=== PATIENT | female | born 1960 ===

== ENCOUNTER 2017-02-19 16:15 | Emergency (ER) | payer MEDICAID ==
[2016-12-02 09:31] VITALS: PULSE 86; BMI 23.4
== END 2017-02-19 22:52 | disposition home or self-care (01) ==
LOC: ED 16:15
DX: H92.01 Otalgia, right ear (principal)

== ENCOUNTER 2017-07-09 10:35 | Emergency (ER) | payer MEDICAID ==
[2017-07-09 10:36] VITALS: PULSE 86; BMI 23.4
[2017-07-09 10:48] VITALS: RESP 18; TEMP 97.9
[2017-07-09] MEDS ORDERED: TDAP Vaccine 0.5 mL Syr IM ONE (11:09)
--- NOTE | 2017-07-09 11:24 | ED PDOC ---
Arrival/HPI - General Chief Complaint: Trauma Time Seen by Provider: 07/09/17 11:03 Historian: Patient - History of Present Illness Narrative History of Present Illness (Text): 07/09/17 11:07 57 year old female, whose past medical history includes diabetes, hypertension, and tachycardia, presents to the emergency department complaining of mechanical fall since 4 days ago. Patient states she fell while walking. She is uncertain how she fell. Since then, patient has been experiencing back pain and has an abrasion on her elbow. Patient states she thought if she rested, the pain would go away, but has had no relief. Patient has no other complaints. Also, patient is refusing to be given any pain medications at this time. PMD: Dr. Her Time/Duration: > week (4 days ago) Symptom Onset: Gradual Symptom Course: Unchanged Past Medical History - Provider Review Nursing Documentation Reviewed: Yes - Infectious Disease Hx of Infectious Diseases: None - Cardiac Hx Cardiac Disorders: Yes (dextrocardia) Hx Hypertension: No - Pulmonary Hx Respiratory Disorders: No - Neurological Hx Neurological Disorder: Yes (multiple sclerosis) - HEENT Hx HEENT Disorder: Yes (impaired vision) Hx Cataracts: Yes (b/l sx) Hx Glaucoma: Yes (r eye needs sx, redness noted) Other/Comment: speech impediment - Renal Hx Renal Disorder: No - Endocrine/Metabolic Hx Endocrine Disorders: Yes Hx Diabetes Mellitus Type 2: Yes - Hematological/Oncological Hx Cirrhosis: No - Integumentary Hx Dermatological Disorder: No - Musculoskeletal/Rheumatological Hx Musculoskeletal Disorders: Yes Hx Back Pain: Yes Hx Falls: No Other/Comment: waks with cane - Gastrointestinal Hx Gastrointestinal Disorders: Yes (constipation at times) - Genitourinary/Gynecological Hx Genitourinary Disorders: No - Psychiatric Hx Post Traumatic Stress Disorder: No Hx Psychosis: Yes Hx Substance Use: No - Surgical History Hx Hysterectomy: Yes Hx Orthopedic Surgery: Yes - Anesthesia Hx Anesthesia: Yes Hx Anesthesia Reactions: No Hx Malignant Hyperthermia: No Family/Social History - Physician Review Nursing Documentation Reviewed: Yes Family/Social History: No Known Family HX Smoking Status: Never Smoked Hx Alcohol Use: No Hx Substance Use: No Allergies/Home Meds Allergies/Adverse Reactions: Allergies EGG Allergy (Mild, Verified 07/09/17 10:42) NAUSEA Review of Systems - Physician Review All systems were reviewed & negative as marked: Yes - Review of Systems Musculoskeletal: Back Pain Skin: Other (abrasion to left elbow) Physical Exam Vital Signs Reviewed: Yes Vital Signs Temp Pulse Resp BP Pulse Ox 07/09/17 12:02 92 H 18 100/80 100 07/09/17 10:45 97.9 F 100 H 18 94/72 L 96 Temperature: Afebrile Blood Pressure: Normal Pulse: Regular Respiratory Rate: Normal Appearance: Positive for: Well-Appearing Pain Distress: None Mental Status: Positive for: Alert and Oriented X 3 - Systems Exam Back: Present: Paraspinal Tenderness (lower back) Upper Extremity: Present: Other (abrasion to left elbow) Medical Decision Making ED Course and Treatment: 07/09/17 11:14 Impression: 57 year old female with left elbow abrasion and lower back pain. Physical exam shows, abrasion to left elbow and paraspinal tenderness to lower back. Plan: -- Left Elbow X-Ray -- Lumbar Spinal X-ray -- Boostrix vaccine -- Reassess and disposition Prior Visits: Notes and results from previous visits were reviewed. Patient was last seen in the emergency department on 12/02/2016 for urinary frequency and urgency. Patient was discharged home. Progress Notes: 07/09/2017 12:44 Lumbar Spine X-Ray FINDINGS: BONES: Normal alignment. No listhesis. No fracture. DISC SPACES: Unremarkable. OTHER FINDINGS: None. IMPRESSION: Unremarkable radiographs of the lumbar spine. Dictator: Elliot Booker MD - RAD Interpretation Radiology Orders: 07/09/17 11:09 ELBOW LEFT 3 VIEWS ROUTINE [RAD] Stat LS SPINE AP/LAT [RAD] Stat - Medication Orders Current Medication Orders: Discontinued Medications Tetanus/Reduced Diphtheria/Acell Pertussis (Boostrix Vaccine Inj) 0.5 ml IM .ONCE ONE Stop: 07/09/17 11:10 Last Admin: 07/09/17 11:47 Dose: 0.5 ml MAR Immunization Data Document 07/09/17 11:47 SF (Rec: 07/09/17 11:47 SF [id number]) Immunization Data Vaccine Lot Number [id number] Vaccine Expiration Date 06/17/19 Site Given Left Deltoid - Scribe Statement The provider has reviewed the documentation as recorded by the Landon Ang Provider Scribe Attestation: All medical record entries made by the Scribe were at my direction and personally dictated by me. I have reviewed the chart and agree that the record accurately reflects my personal performance of the history, physical exam, medical decision making, and the department course for this patient. I have also personally directed, reviewed, and agree with the discharge instructions and disposition. Disposition/Present on Arrival - Present on Arrival Any Indicators Present on Arrival: No History of DVT/PE: No History of Uncontrolled Diabetes: No Urinary Catheter: No History of Decub. Ulcer: No History Surgical Site Infection Following: None - Disposition Have Diagnosis and Disposition been Completed?: Yes Diagnosis: Fall, Elbow injury, Back sprain Disposition: HOME/ ROUTINE Disposition Time: 12:00 Condition: STABLE Discharge Instructions (ExitCare): Acute Low Back Pain (ED), Elbow Sprain (ED) , Fall Prevention (ED) Additional Instructions: please follow up withyour doctor/clinic. return to er with worsening symptoms or concerns. Prescriptions: Cyclobenzaprine [Cyclobenzaprine HCl] 10 mg PO DAILY PRN #10 tab PRN Reason: Muscle Spasm Naproxen [Naprosyn] 500 mg PO BID PRN #14 tablet PRN Reason: Pain, Mild (1-3) Referrals: [facility] [Outside] - Follow up with primary [facility] [Outside] - Follow up with primary Duran Martinez MD [Staff Provider] - Follow up with primary Forms: [employer] (Chinese)
[2017-07-09 12:03] VITALS: BP 100/80; PULSE 92; O2SAT 100
--- NOTE | 2017-07-09 12:45 | RAD ---
PROCEDURE: Radiographs of the Lumbar Spine. HISTORY: fall COMPARISON: No prior. FINDINGS: BONES: Normal alignment. No listhesis. No fracture. DISC SPACES: Unremarkable. OTHER FINDINGS: None. IMPRESSION: Unremarkable radiographs of the lumbar spine.
--- NOTE | 2017-07-09 12:48 | RAD ---
PROCEDURE: Radiographs of the left elbow. HISTORY: fall COMPARISON: No prior. FINDINGS: BONES: Normal. No fracture. JOINTS: Normal. No osteoarthritis. SOFT TISSUES: Normal. JOINT EFFUSION: None. OTHER FINDINGS: None IMPRESSION: Unremarkable radiographs of the left elbow.
== END 2017-07-09 12:01 | disposition home or self-care (01) ==
LOC: ED 10:35
DX: S33.5XXA Sprain of ligaments of lumbar spine, initial encounter (principal); S59.902A Unspecified injury of left elbow, initial encounter; W01.0XXA Fall on same level from slipping, tripping and stumbling without subsequent striking against object, initial encounter; Y93.01 Activity, walking, marching and hiking; Y92.89 Other specified places as the place of occurrence of the external cause; Z23 Encounter for immunization

== ENCOUNTER 2017-08-25 10:45 | Emergency (ER) | payer MEDICAID ==
[2017-08-25 10:46] VITALS: PULSE 86; BMI 23.4
[2017-08-25 11:01] VITALS: RESP 18; TEMP 98.1; O2SAT 98
[2017-08-25 11:33] VITALS: BP 113/71; PULSE 94
--- NOTE | 2017-08-25 11:37 | ED PDOC ---
Arrival/HPI - General Historian: Patient EM Caveat: Other (hx of mental deficiency ) - History of Present Illness Time/Duration: 24 hours Symptom Course: Unchanged <Francisco Perera - Last Filed: 08/25/17 11:47> - History of Present Illness Activities at Onset: Rest, Light Context: Home <Parul Zuniga - Last Filed: 08/25/17 17:14> - General Chief Complaint: Abnormal Skin Integrity Time Seen by Provider: 08/25/17 11:15 - History of Present Illness Narrative History of Present Illness (Text): 08/25/17 11:32 This is a 57 yo female, with hx of mental deficiency, a fib, dextrocardia, DM, MS, presenting to ER with chief complaint of bump on back of her neck. Patient has small cyst on back of neck that she first noticed 1 year ago. It started becoming painful today so she decided to come into ER. She denies fevers, chills , other systemic sx. There has been no pus or drainage. She does report some dizziness occasionally owing to her a fib. She has an appt with Dr. Anders on . PMH: DM, MS, a fib, dextrocardia PSH: none Allergies: morphine Home meds: none FH: Alzheimer's disease Social hx: Denies smoking, drinking, drug use. Born in [place]. 08/25/17 11:37 (Francisco Perera) Past Medical History - Provider Review Nursing Documentation Reviewed: Yes - Travel History Have you recently traveled outside [place] w/in the past 3 mons?: No - Infectious Disease Hx of Infectious Diseases: None - Reproductive Menopause: Yes - Cardiac Hx Cardiac Disorders: Yes (dextrocardia) Hx Atrial Fibrillation: Yes Hx Hypertension: No - Pulmonary Hx Respiratory Disorders: No - Neurological Hx Neurological Disorder: Yes (multiple sclerosis) - HEENT Hx HEENT Disorder: Yes (impaired vision) Hx Cataracts: Yes (b/l sx) Hx Glaucoma: Yes (r eye needs sx, redness noted) Other/Comment: speech impediment - Renal Hx Renal Disorder: No - Endocrine/Metabolic Hx Endocrine Disorders: Yes Hx Diabetes Mellitus Type 2: Yes - Hematological/Oncological Hx Cirrhosis: No - Integumentary Hx Dermatological Disorder: No - Musculoskeletal/Rheumatological Hx Musculoskeletal Disorders: Yes Hx Back Pain: Yes Hx Falls: No Other/Comment: waks with cane - Gastrointestinal Hx Gastrointestinal Disorders: Yes (constipation at times) - Genitourinary/Gynecological Hx Genitourinary Disorders: No - Psychiatric Hx Post Traumatic Stress Disorder: No Hx Psychosis: Yes Hx Substance Use: No - Surgical History Hx Hysterectomy: Yes Hx Orthopedic Surgery: Yes - Anesthesia Hx Anesthesia: Yes Hx Anesthesia Reactions: No Hx Malignant Hyperthermia: No <Francisco Perera - Last Filed: 08/25/17 11:47> Family/Social History - Physician Review Nursing Documentation Reviewed: Yes Family/Social History: Diabetes Smoking Status: Never Smoked Hx Alcohol Use: No Hx Substance Use: No <Francisco Perera - Last Filed: 08/25/17 11:47> Allergies/Home Meds <Francisco Perera - Last Filed: 08/25/17 11:47> <Parul Zuniga - Last Filed: 08/25/17 17:14> Allergies/Adverse Reactions: Allergies EGG Allergy (Mild, Verified 08/25/17 11:02) NAUSEA Home Medications: Home Meds Medication Instructions Recorded Confirmed No Known Home Med 08/25/17 08/25/17 Review of Systems - Review of Systems Constitutional: absent: Fatigue, Fevers, Night Sweats Eyes: absent: Vision Changes, Eye Pain ENT: absent: Hearing Changes, Tinnitus Respiratory: absent: SOB, Cough Cardiovascular: absent: Chest Pain, Palpitations Gastrointestinal: absent: Abdominal Pain, Constipation Genitourinary Female: absent: Dysuria, Frequency Musculoskeletal: absent: Arthralgias, Back Pain Skin: Skin Lesions Neurological: absent: Headache, Dizziness Endocrine: absent: Diaphoresis, Polyuria Hemo/Lymphatic: absent: Adenopathy, Easy Bleeding Psychiatric: absent: Anxiety, Depression <Francisco Perera - Last Filed: 08/25/17 11:47> Physical Exam Vital Signs Reviewed: Yes - Systems Exam Head: Present: Atraumatic, Normocephalic Pupils: Present: PERRL Extroacular Muscles: Present: EOMI Conjunctiva: Present: Normal Neck: Present: Normal Range of Motion Respiratory/Chest: Present: Clear to Auscultation. No: Respiratory Distress Cardiovascular: Present: Normal S1, S2 Abdomen: Present: Normal Bowel Sounds. No: Tenderness, Distention, Peritoneal Signs Upper Extremity: Present: Normal Inspection. No: Cyanosis, Edema Lower Extremity: Present: Normal Inspection. No: Edema Neurological: Present: GCS=15, CN II-XII Intact, Speech Normal Skin: Present: Warm, Dry, Other (sebaceous cyst, non tender, nape of neck, no pus or drainage ) Lymphatic: No: Cervical Adenopathy, Axillary Adenopathy Psychiatric: Present: Alert <Francisco Perera - Last Filed: 08/25/17 11:47> Vital Signs Reviewed: Yes Temperature: Afebrile Blood Pressure: Normal Pulse: Tachycardic Respiratory Rate: Normal Appearance: Positive for: Well-Appearing, Non-Toxic, Comfortable <Parul Zuniga - Last Filed: 08/25/17 17:14> Vital Signs Temp Pulse Resp BP Pulse Ox 08/25/17 11:33 94 H 18 113/71 98 08/25/17 10:57 98.1 F 122 H 18 113/76 98 Medical Decision Making - EKG Interpretation Interpreted by ED Physician: Yes Type: 12 lead EKG <Francisco Perera - Last Filed: 08/25/17 11:47> - EKG Interpretation Interpreted by ED Physician: Yes Type: 12 lead EKG Comparison: Similar to previous EKG (03/15/16 and 03/18/16) <Parul Zuniga - Last Filed: 08/25/17 17:14> ED Course and Treatment: 08/25/17 11:45 -will order EKG (Francisco Perera) 08/25/17 12:10 Patient Seen With Resident: In agreement with resident note which contains more details about the patient. Patient was seen and evaluated with resident. Came up with plan and treatment together. The patient is a 57 year old female, who has a history of mental deficiency, a fib, dextrocardia, DM, MS, who presents to the emergency department for a complaint of bump on the back of her neck. The patient has small cyst on back of neck that she first noticed 1 year ago. There is no warmth or erythema or tenderness. She will need to follow up with surgery. Patient also noted with history of afib - no palpitations, sob, or cp. She says she has chronic intermittent dizziness but no acute symptoms. The patient says she is not on any meds for her afib; ekg done shows no significant changes. She has been advised to follow up with Dr. Her, with whom she has an appointment in a few days. (Parul Zuniga) - Lab Interpretations Narrative Lab Interpretation (Text): 08/25/17 11:47 (Francisco Perera) - EKG Interpretation EKG Interpretation (Text): 08/25/17 11:47 EKG shows atrial flutter, no acute st changes, rate of 98, unchanged from previous ekg (Francisco Perera) <Francisco Perera - Last Filed: 08/25/17 11:47> - PA / FIRST PRESS OPERATOR / Resident Statement MD/ has reviewed & agrees with the documentation as recorded. MD/ has examined the patient and agrees with the treatment plan. - Scribe Statement The provider has reviewed the documentation as recorded by the Scribe <Parul Zuniga - Last Filed: 08/25/17 17:14> - Scribe Statement Corie Aquino Provider Scribe Attestation: All medical record entries made by the Scribe were at my direction and personally dictated by me. I have reviewed the chart and agree that the record accurately reflects my personal performance of the history, physical exam, medical decision making, and the department course for this patient. I have also personally directed, reviewed, and agree with the discharge instructions and disposition. (Parul Zuniga) Disposition/Present on Arrival - Present on Arrival History of DVT/PE: No History of Uncontrolled Diabetes: No Urinary Catheter: No History of Decub. Ulcer: No History Surgical Site Infection Following: None <Francisco Perera - Last Filed: 08/25/17 11:47> - Present on Arrival Any Indicators Present on Arrival: No - Disposition Have Diagnosis and Disposition been Completed?: Yes Disposition Time: 12:00 Patient Plan: Discharge <Parul Zuniga - Last Filed: 08/25/17 17:14> - Disposition Diagnosis: Cyst Disposition: HOME/ ROUTINE Condition: GOOD Discharge Instructions (ExitCare): Epidermal Inclusion Cysts (ED) Additional Instructions: Warm compresses to cyst site. Follow up with surgery. Also make sure you follow up with Dr. Her regarding further treatment of your chronic atrial fibrillation. Return to the emergency department if any new concerning symptoms. Referrals: Noy Her MD [Primary Care Provider] - Follow up with primary Salvador Cortez MD [Staff Provider] - Follow up with primary Kirit Miranda MD [Medical Doctor] - Follow up with primary Forms: [employer] (Surinamese)
--- NOTE | 2017-08-26 07:42 | CARD ---
APPROVED REPORT EKG Measurement Heart [id number] SD P96 [id number] <Conclusion> Atrial flutter with variable AV block LBBB STTW changes
== END 2017-08-25 12:15 | disposition home or self-care (01) ==
LOC: ED 10:45
DX: L72.3 Sebaceous cyst (principal)

== ENCOUNTER 2017-09-02 13:33 | Inpatient (IN) | payer MEDICAID ==
[2017-09-02 13:34] VITALS: PULSE 86; BMI 23.4
[2017-09-02 14:55] LABS: BASO # 0.03 K/mm3 (0.0-2.0); BASO % 0.3 % (0.0-3.0); EOS # 0.2 (0.0-0.7); EOS % 1.7 % (1.5-5.0); GRAN # 5.83 (1.4-6.5); GRAN % 60.9 % (50.0-68.0); HEMATOCRIT 42.9 % (36.0-48.0); LYMPH # 2.9 (1.2-3.4); LYMPH % 30.1 % (22.0-35.0); MEAN CELL VOLUME 98.8 fl (80.0-105.0); MEAN CORPUSCULAR HEMOGLOBIN 31.8 pg (25.0-35.0); MEAN CORPUSCULAR HGB CONC 32.2 g/dl (31.0-37.0); MEAN PLATELET VOLUME 10.4 fl (7.0-11.0); MONO # 0.7 (0.1-0.6); RED CELL DISTRIBUTION WIDTH 13.8 % (11.5-14.5); WHITE BLOOD COUNT 9.6 10^3/ul (4.5-11.0)
[2017-09-02 14:56] LABS: VENOUS BLOOD GAS BASE EXCESS 5.6 mmol/L (0.0-2.0); VENOUS BLOOD PH 7.36 (7.32-7.43)
[2017-09-02 15:00] LABS: URINE APPEARANCE CLEAR (CLEAR); URINE BILIRUBIN NEGATIVE (NEGATIVE); URINE BLOOD NEGATIVE (NEGATIVE); URINE COLOR YELLOW (YELLOW); URINE GLUCOSE (UA) NEGATIVE (NEGATIVE); URINE KETONE NEGATIVE (NEGATIVE); URINE LEUKOCYTE ESTERASE TRACE Leu/uL (NEGATIVE); URINE PROTEIN NEGATIVE mg/dL (<30 mg/dL); URINE UROBILINOGEN 0.2 E.U./dL (<1 E.U./dL)
[2017-09-02 15:07] LABS: URINE AMORPHOUS SEDIMENT FEW; URINE BACTERIA LARGE (NEG); URINE EPITHELIAL CELLS MANY /hpf (0-5); URINE RBC 0 - 2 /hpf (0-2)
[2017-09-02 15:40] LABS: THYROID STIMULATING HORMONE 0.64 mIU/mL (0.46-4.68)
[2017-09-02 16:51] LABS: TROPONIN I < 0.01 ng/mL
[2017-09-02 16:54] LABS: ALB/GLOB RATIO 1.3 (1.1-1.8); ALKALINE PHOSPHATASE 90 U/L (38-126); ALT/SGPT 30 U/L (7-56); AST/SGOT 20 U/L (14-36); BILIRUBIN,TOTAL 0.6 mg/dL (0.2-1.3); BLOOD UREA NITROGEN 13 mg/dL (7-21); CALCIUM 9.8 mg/dL (8.4-10.5); CARBON DIOXIDE 31 mmol/L (21-33); CHLORIDE 107 mmol/L (98-107); GFR AFRICAN-AMERICAN > 60; GLUCOSE,RANDOM 84 mg/dL (70-110); MAGNESIUM 2.3 mg/dL (1.7-2.2); SODIUM 143 mmol/L (132-148); TOTAL PROTEIN 6.8 g/dL (5.8-8.3)
[2017-09-02 16:55] LABS: POTASSIUM 6.3 mmol/L (3.6-5.0)
[2017-09-02] MEDS ORDERED: Sodium Chloride 0.9% 1,000 ML IV STA (16:59)
--- NOTE | 2017-09-02 17:51 | ED PDOC ---
Arrival/HPI - General Chief Complaint: Chest Pain Time Seen by Provider: 09/02/17 14:30 Historian: Patient, Caregiver, Other (pmd Dr. Her ) - History of Present Illness Narrative History of Present Illness (Text): 09/02/17 17:45 7 year old female, whose past medical history includes diabetes, hypertension, and paroxysmal uncharacterized tachycardia? , presents to the emergency department complaining seevral days of dizziness , characterized as lightheadness x 4 days or so, as well episodic chest pain last felt for several seconds several days ago, as well as concerns of recent increased forgetfulness and fear f her developing premature acs. PMD sent him here out of concern for her anticoagulated status and with labile rate control , Pt denies any recent decrementation of her appetite but states that she doesn't like drinking water.Pt stataes that her palpitations of long tme chroniccity since childhood Pt deosn't remember if she received cardiac risk statififcation tests. 09/02/17 17:51 Past Medical History - Provider Review Nursing Documentation Reviewed: Yes - Infectious Disease Hx of Infectious Diseases: None - Cardiac Hx Cardiac Disorders: Yes (dextrocardia) Hx Atrial Fibrillation: Yes Hx Hypertension: No - Pulmonary Hx Respiratory Disorders: No - Neurological Hx Neurological Disorder: Yes (multiple sclerosis) - HEENT Hx HEENT Disorder: Yes (impaired vision) Hx Cataracts: Yes (b/l sx) Hx Glaucoma: Yes (r eye needs sx, redness noted) Other/Comment: speech impediment - Renal Hx Renal Disorder: No - Endocrine/Metabolic Hx Endocrine Disorders: Yes Hx Diabetes Mellitus Type 2: Yes - Hematological/Oncological Hx Cirrhosis: No - Integumentary Hx Dermatological Disorder: No - Musculoskeletal/Rheumatological Hx Musculoskeletal Disorders: Yes Hx Back Pain: Yes Hx Falls: No Other/Comment: waks with cane - Gastrointestinal Hx Gastrointestinal Disorders: Yes (constipation at times) - Genitourinary/Gynecological Hx Genitourinary Disorders: No - Psychiatric Hx Post Traumatic Stress Disorder: No Hx Psychosis: Yes Hx Substance Use: No - Surgical History Hx Hysterectomy: Yes Hx Orthopedic Surgery: Yes - Anesthesia Hx Anesthesia: Yes Hx Anesthesia Reactions: No Hx Malignant Hyperthermia: No Family/Social History - Physician Review Nursing Documentation Reviewed: Yes Family/Social History: No Known Family HX Smoking Status: Never Smoked Hx Alcohol Use: No Hx Substance Use: No Allergies/Home Meds Allergies/Adverse Reactions: Allergies EGG Allergy (Mild, Verified 09/02/17 13:39) NAUSEA Home Medications: Home Meds Medication Instructions Recorded Confirmed No Known Home Med 08/25/17 09/02/17 Review of Systems - Physician Review All systems were reviewed & negative as marked: Yes - Review of Systems Constitutional: Normal Eyes: Normal ENT: Normal Respiratory: Normal Cardiovascular: Chest Pain, Palpitations Gastrointestinal: Normal Genitourinary Female: Normal Musculoskeletal: Normal Skin: Normal Neurological: Normal Endocrine: Normal Hemo/Lymphatic: Normal Psychiatric: Normal Physical Exam Vital Signs Reviewed: Yes Vital Signs Temp Pulse Resp BP Pulse Ox 09/02/17 18:33 93 H 19 120/80 100 09/02/17 13:39 97.8 F 133 H 18 118/81 96 Temperature: Afebrile Blood Pressure: Normal Pulse: Regular Respiratory Rate: Normal Appearance: Positive for: Well-Appearing, Non-Toxic, Comfortable Pain Distress: None Mental Status: Positive for: Alert and Oriented X 3 - Systems Exam Head: Present: Atraumatic, Normocephalic Pupils: Present: PERRL Extroacular Muscles: Present: EOMI Conjunctiva: Present: Normal Mouth: Present: Moist Mucous Membranes, Other (poor dentition ) Neck: Present: Normal Range of Motion Respiratory/Chest: Present: Clear to Auscultation, Good Air Exchange. No: Respiratory Distress, Accessory Muscle Use Cardiovascular: Present: Regular Rate and Rhythm, Normal S1, S2. No: Murmurs Abdomen: Present: Normal Bowel Sounds. No: Tenderness, Distention, Peritoneal Signs Back: Present: Normal Inspection Upper Extremity: Present: Normal Inspection. No: Cyanosis, Edema Lower Extremity: Present: Normal Inspection. No: Edema Neurological: Present: GCS=15, CN II-XII Intact, Speech Normal Skin: Present: Warm, Dry, Normal Color. No: Rashes Psychiatric: Present: Alert, Oriented x 3, Normal Insight, Normal Concentration Medical Decision Making ED Course and Treatment: aFIB w/ rvr @ 110 bpm , lvh , qtc prolonged at 492 mS , twi in v 4-v6 , I, aVL 09/02/17 17:53 - Lab Interpretations Lab Results: 09/02/17 14:30 09/02/17 16:02 Lab Results 09/02/17 16:02: Sodium 143, Chloride 107, Potassium 6.3 H* D, Carbon Dioxide 31 , Anion Gap 11, BUN 13, Creatinine 0.7, Est GFR ( Amer) > 60, Est GFR ( Non-Af Amer) > 60, Random Glucose 84, Calcium 9.8, Magnesium 2.3 H, Total Bilirubin 0.6, AST 20, ALT 30, Alkaline Phosphatase 90, Lactate Dehydrogenase 441, Total Creatine Kinase 45, Troponin I < 0.01, NT-Pro-B Natriuret Pep 162, Total Protein 6.8, Albumin 3.9, Globulin 2.9, Albumin/Globulin Ratio 1.3 09/02/17 14:30: Thyroxine (T4) 7.0, TSH 3rd Generation 0.64 09/02/17 14:30: pO2 51, VBG pH 7.36, VBG pCO2 58.0, VBG HCO3 32.8 H, VBG Total CO2 34.6 H, VBG O2 Sat (Calc) 84.9 H, VBG Base Excess 5.6 H, VBG Potassium 5.2, Sodium 143.0, Chloride 110.0 H, Glucose 88, Lactate 1.0, FiO2 21.0, Venous Blood Potassium 5.2 09/02/17 14:30: WBC 9.6, RBC 4.34, Hgb 13.8, Hct 42.9, MCV 98.8, MCH 31.8, MCHC 32.2, RDW 13.8, Plt Count 144, MPV 10.4, Gran % 60.9, Lymph % (Auto) 30.1, [place] % (Auto) 7.0 H, Eos % (Auto) 1.7, Baso % (Auto) 0.3, Gran # 5.83, Lymph # 2.9, [place] # 0.7 H, Eos # 0.2, Baso # 0.03 09/02/17 11:29: Urine Color Yellow, Urine Appearance Clear, Urine pH 6.0, Ur Specific [place] >= 1.030, Urine Protein Negative, Urine Glucose (UA) Negative, Urine Ketones Negative, Urine Blood Negative, Urine Nitrate Positive H, Urine Bilirubin Negative, Urine Urobilinogen 0.2, Ur Leukocyte Esterase Trace H, Urine RBC 0 - 2, Urine WBC 2 - 5, Ur Epithelial Cells Many, Amorphous Sediment Few, Urine Bacteria Large, Urine Other Uyeast - Medication Orders Current Medication Orders: Famotidine (Pepcid) 40 mg PO HS NAOMI Last Admin: 09/02/17 21:45 Dose: 40 mg Sodium Chloride (Sodium Chloride 0.9%) 1,000 mls @ 100 mls/hr IV .Q10H NAOMI Last Admin: 09/02/17 21:44 Dose: 100 mls/hr eMAR Start Stop Document 09/02/17 21:44 CO (Rec: 09/02/17 21:44 CO [id number]) Intravenous Solution Start Date 09/02/17 Start Time 21:44 Discontinued Medications Calcium Gluconate (Calcium Gluconate Iv) 1,000 mg IVP ONCE ONE Stop: 09/02/17 16:58 Last Admin: 09/02/17 17:23 Dose: 1,000 mg Comments: mixed in 250cc NS IVP Administration Document 09/02/17 17:23 SE (Rec: 09/02/17 17:23 SE [id number]) Charges for Administration # of IVP Administrations 1 Diltiazem HCl (Cardizem) 10 mg IVP STAT STA Stop: 09/02/17 21:05 Sodium Chloride (Sodium Chloride 0.9%) 1,000 mls @ 999 mls/hr IV .Q1H1M STA Stop: 09/02/17 17:59 Last Admin: 09/02/17 17:11 Dose: 999 mls/hr eMAR Start Stop Document 09/02/17 17:11 SE (Rec: 09/02/17 17:11 SE [id number]) Intravenous Solution Start Date 09/02/17 Start Time 17:11 Sodium Polystyrene Sulfonate (Kayexalate Susp) 15 gm PO STAT STA Stop: 09/02/17 21:06 Last Admin: 09/02/17 21:37 Dose: 15 gm Disposition/Present on Arrival - Present on Arrival Any Indicators Present on Arrival: No History of DVT/PE: No History of Uncontrolled Diabetes: No Urinary Catheter: No History of Decub. Ulcer: No History Surgical Site Infection Following: None - Disposition Have Diagnosis and Disposition been Completed?: Yes Diagnosis: Atrial fibrillation with RVR, Palpitation, Dehydration Disposition: HOSPITALIZED Disposition Time: 19:00 Patient Plan: Admission Condition: FAIR
[2017-09-02 18:55] LABS: INR 1.09 (0.93-1.08); PARTIAL THROMBOPLASTIN TIME 29.2 Seconds (25.1-36.5)
[2017-09-02 19:15] LABS: ALB/GLOB RATIO 1.4 (1.1-1.8); ALKALINE PHOSPHATASE 90 U/L (38-126); ALT/SGPT 36 U/L (7-56); AST/SGOT 28 U/L (14-36); BILIRUBIN,TOTAL 0.5 mg/dL (0.2-1.3); BLOOD UREA NITROGEN 13 mg/dL (7-21); CALCIUM 10.5 mg/dL (8.4-10.5); CARBON DIOXIDE 32 mmol/L (21-33); CHLORIDE 107 mmol/L (98-107); GFR AFRICAN-AMERICAN > 60; GLUCOSE,RANDOM 83 mg/dL (70-110); POTASSIUM 5.2 mmol/L (3.6-5.0); SODIUM 143 mmol/L (132-148); TOTAL PROTEIN 6.6 g/dL (5.8-8.3)
--- NOTE | 2017-09-02 20:58 | CP.PCM.PN ---
Subjective - Date & Time of Evaluation Date of Evaluation: 09/02/17 Time of Evaluation: 20:58 - Subjective Subjective: Patient was seen at bedside. Earlier I had ordered cardizem 10 mg IV for atrial fibrillation with rate of 145/min which had been present for about 15 minutes and patient was asymptomatic. Beofre ,cardizem can be given heart rate came down to less than 90 per minute. Patient has no complaints now. Denies chest pain, sob, nausea, vomiting,sweating, palpitations. Medical record was reviewed. This 57 year old woman was admitted with dizziness, lightheadedness ,episodic chest pain, atrial fibrillation with RVR,dehydration, palpitation. Has PMH of atrial fibrillation,DM, HTN, dextrocardia by history ,bilateral cataract, hystrectomy. Objective - Vital Signs/Intake and Output Vital Signs (last 24 hours): Temp Pulse Resp BP Pulse Ox 97.8 F 93 H 19 120/80 100 09/02/17 13:39 09/02/17 18:33 09/02/17 18:33 09/02/17 18:33 09/02/17 18:33 - Medications Medications: Current Medications Famotidine (Pepcid) 40 mg PO HS [facility] Sodium Chloride (Sodium Chloride 0.9%) 1,000 mls @ 100 mls/hr IV .Q10H [facility] - Labs Labs: 09/02/17 18:45 PT 11.9 SECONDS (9.4-12.5) 09/02/17 18:34 INR 1.09 (0.93-1.08) H 09/02/17 18:34 APTT 29.2 Seconds (25.1-36.5) 09/02/17 18:34 Most Recent Lab Values WBC 9.6 10^3/ul (4.5-11.0) 09/02/17 14:30 RBC 4.34 10^6/uL (3.5-6.1) 09/02/17 14:30 Hgb 13.8 g/dL (12.0-16.0) 09/02/17 14:30 Hct 42.9 % (36.0-48.0) 09/02/17 14:30 MCV 98.8 fl (80.0-105.0) 09/02/17 14:30 MCH 31.8 pg (25.0-35.0) 09/02/17 14:30 MCHC 32.2 g/dl (31.0-37.0) 09/02/17 14:30 RDW 13.8 % (11.5-14.5) 09/02/17 14:30 Plt Count 144 10^3/uL (120.0-450.0) 09/02/17 14:30 MPV 10.4 fl (7.0-11.0) 09/02/17 14:30 Gran % 60.9 % (50.0-68.0) 09/02/17 14:30 Lymph % (Auto) 30.1 % (22.0-35.0) 09/02/17 14:30 Cook % (Auto) 7.0 % (1.0-6.0) H 09/02/17 14:30 Eos % (Auto) 1.7 % (1.5-5.0) 09/02/17 14:30 Baso % (Auto) 0.3 % (0.0-3.0) 09/02/17 14:30 Gran # 5.83 (1.4-6.5) 09/02/17 14:30 Lymph # 2.9 (1.2-3.4) 09/02/17 14:30 Cook # 0.7 (0.1-0.6) H 09/02/17 14:30 Eos # 0.2 (0.0-0.7) 09/02/17 14:30 Baso # 0.03 K/mm3 (0.0-2.0) 09/02/17 14:30 PT 11.9 SECONDS (9.4-12.5) 09/02/17 18:34 INR 1.09 (0.93-1.08) H 09/02/17 18:34 APTT 29.2 Seconds (25.1-36.5) 09/02/17 18:34 pO2 51 mm/Hg (30-55) 09/02/17 14:30 VBG pH 7.36 (7.32-7.43) 09/02/17 14:30 VBG pCO2 58.0 (40-60) 09/02/17 14:30 VBG HCO3 32.8 mmol/l (21-28) H 09/02/17 14:30 VBG Total CO2 34.6 mmol.L (22-28) H 09/02/17 14:30 VBG O2 Sat (Calc) 84.9 % (40-65) H 09/02/17 14:30 VBG Base Excess 5.6 mmol/L (0.0-2.0) H 09/02/17 14:30 VBG Potassium 5.2 mmol/L (3.6-5.2) 09/02/17 14:30 Sodium 143.0 mmol/L (132-148) 09/02/17 14:30 Chloride 110.0 mmol/L (98-107) H 09/02/17 14:30 Glucose 88 mg/dl (65-105) 09/02/17 14:30 Lactate 1.0 mmol/L (0.7-2.1) 09/02/17 14:30 FiO2 21.0 % 09/02/17 14:30 Sodium 143 mmol/L (132-148) 09/02/17 18:45 Potassium 5.2 mmol/L (3.6-5.0) H 09/02/17 18:45 Chloride 107 mmol/L (98-107) 09/02/17 18:45 Carbon Dioxide 32 mmol/L (21-33) 09/02/17 18:45 Anion Gap 9 (10-20) L 09/02/17 18:45 BUN 13 mg/dL (7-21) 09/02/17 18:45 Creatinine 0.7 mg/dl (0.7-1.2) 09/02/17 18:45 Est GFR ( Amer) > 60 09/02/17 18:45 Est GFR (Non-Af Amer) > 60 09/02/17 18:45 POC Glucose (mg/dL) 92 mg/dL (65-110) 09/02/17 21:23 Random Glucose 83 mg/dL (70-110) 09/02/17 18:45 Calcium 10.5 mg/dL (8.4-10.5) 09/02/17 18:45 Magnesium 2.3 mg/dL (1.7-2.2) H 09/02/17 16:02 Iron 40 ug/dL (45-180) L 09/02/17 21:30 TIBC 315 ug/dL (265-497) 09/02/17 21:30 % Saturation 13 % (20-55) L 09/02/17 21:30 Total Bilirubin 0.5 mg/dL (0.2-1.3) 09/02/17 18:45 AST 28 U/L (14-36) 09/02/17 18:45 ALT 36 U/L (7-56) 09/02/17 18:45 Alkaline Phosphatase 90 U/L (38-126) 09/02/17 18:45 Lactate Dehydrogenase 346 U/L (333-699) 09/02/17 21:30 Total Creatine Kinase 42 U/L (35-230) 09/02/17 21:30 Troponin I < 0.01 ng/mL 09/02/17 21:30 NT-Pro-B Natriuret Pep 225 pg/mL (0-450) 09/02/17 21:30 Total Protein 6.6 g/dL (5.8-8.3) 09/02/17 18:45 Albumin 3.9 g/dL (3.0-4.8) 09/02/17 18:45 Globulin 2.7 gm/dL 09/02/17 18:45 Albumin/Globulin Ratio 1.4 (1.1-1.8) 09/02/17 18:45 Triglycerides 153 mg/dL (35-160) 09/02/17 21:30 Cholesterol 163 mg/dL (130-200) 09/02/17 21:30 LDL Cholesterol Direct 100 mg/dL (0-129) 09/02/17 21:30 HDL Cholesterol 42 mg/dL (29-60) 09/02/17 21:30 Thyroxine (T4) 7.0 ug/dL (5.5-11.0) 09/02/17 14:30 TSH 3rd Generation 0.64 mIU/mL (0.46-4.68) 09/02/17 14:30 Venous Blood Potassium 5.2 mmol/L (3.6-5.2) 09/02/17 14:30 Urine Color Yellow (YELLOW) 09/02/17 11:29 Urine Appearance Clear (CLEAR) 09/02/17 11: Urine pH 6.0 (4.7-8.0) 09/02/17 11: Ur Specific [place] >= 1.030 (1.005-1.035) 09/02/17 11:29 Urine Protein Negative mg/dL (<30 mg/dL) 09/02/17 11:29 Urine Glucose (UA) Negative mg/dL (NEGATIVE) 09/02/17 11:29 Urine Ketones Negative mg/dL (NEGATIVE) 09/02/17 11:29 Urine Blood Negative (NEGATIVE) 09/02/17 11:29 Urine Nitrate Positive (NEGATIVE) H 09/02/17 11:29 Urine Bilirubin Negative (NEGATIVE) 09/02/17 11:29 Urine Urobilinogen 0.2 E.U./dL (<1 E.U./dL) 09/02/17 11:29 Ur Leukocyte Esterase Trace Kash/uL (NEGATIVE) H 09/02/17 11:29 Urine RBC 0 - 2 /hpf (0-2) 09/02/17 11:29 Urine WBC 2 - 5 /hpf (0-6) 09/02/17 11:29 Ur Epithelial Cells Many /hpf (0-5) 09/02/17 11:29 Amorphous Sediment Few 09/02/17 11:29 Urine Bacteria Large (NEG) 09/02/17 11:29 Urine Other Uyeast 09/02/17 11:29 - Constitutional Appears: Well, No Acute Distress - Head Exam Head Exam: ATRAUMATIC, NORMAL INSPECTION, NORMOCEPHALIC - Eye Exam Eye Exam: Normal appearance - ENT Exam ENT Exam: Normal Exam - Neck Exam Neck Exam: Normal Inspection - Respiratory Exam Respiratory Exam: NORMAL BREATHING PATTERN - Cardiovascular Exam Cardiovascular Exam: Irregular Rhythm. absent: JVD - GI/Abdominal Exam GI & Abdominal Exam: absent: Distended - Rectal Exam Rectal Exam: Deferred - Exam Additional comments: Deferred. - Extremities Exam Extremities Exam: Normal Inspection - Back Exam Back Exam: NORMAL INSPECTION - Neurological Exam Neurological Exam: Alert, Awake, Oriented x3 - Psychiatric Exam Psychiatric exam: Normal Affect, Normal Mood - Skin Skin Exam: Normal Color Assessment and Plan - Assessment and Plan (Free Text) Assessment: Atrial fibrillation with RVR -rate came down without any intervention. DM II. Hypertension. History dextrocardia. Hyperkalemia. Plan: Cardizem 10 mg IV was ordered. Heart rate came down before it can be given. Observation. Continue present management.
[2017-09-02] MEDS ORDERED: Sod Polystyrene Sulf 15 gm/60 ml Susp PO STA (21:05)
[2017-09-02] MEDS: Sodium Chloride 0.9% 1,000 ML IV SCH (21:44)
[2017-09-02 21:48] LABS: CHOLESTEROL 163 mg/dL (130-200)
[2017-09-02 21:51] LABS: IRON 40 ug/dL (45-180)
[2017-09-02 22:01] LABS: TROPONIN I < 0.01 ng/mL
--- NOTE | 2017-09-02 23:15 | CARD ---
APPROVED REPORT EKG Measurement Heart [id number] <Conclusion> Atrial flutter with variable AV block LBBB Abnormal ECG
[2017-09-03 07:18] LABS: HEMATOCRIT 38.1 % (36.0-48.0); MEAN CORPUSCULAR HEMOGLOBIN 31.2 pg (25.0-35.0); MEAN CORPUSCULAR HGB CONC 31.2 g/dl (31.0-37.0); MEAN PLATELET VOLUME 9.9 fl (7.0-11.0); RED CELL DISTRIBUTION WIDTH 13.8 % (11.5-14.5); WHITE BLOOD COUNT 7.6 10^3/ul (4.5-11.0)
[2017-09-03 07:58] LABS: TROPONIN I < 0.01 ng/mL
[2017-09-03] MEDS: Sodium Chloride 0.9% 1,000 ML IV SCH ×2 (08:25→12:08)
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
[2017-09-03] MEDS ORDERED: diltiaZEM IVPB 100mg in NS 100 ML IV PRN (10:26)
[2017-09-03 13:34] LABS: FOLATE 7.4 ng/mL
--- NOTE | 2017-09-04 00:02 | CON ---
CARDIOLOGY CONSULTATION DATE: 09/03/2017 REASON FOR CONSULTATION AND FOLLOWUP: Chest pain and paroxysmal atrial fibrillation. BRIEF CLINICAL HISTORY: This is a 57-year-old female with past medical history significant for paroxysmal atrial fibrillation who is complaining of palpitation, chest pain off and on, went to see Dr. Her and found to be in AFib with rapid ventricular rate. The patient was sent to the [place] [facility]. The patient got admitted to the ER with AFib with rapid ventricular rate. The patient complains of off and on chest pain, not different related to exertion. 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 PAST SURGICAL HISTORY: Significant for hysterectomy. CURRENT MEDICATIONS AT HOME: None. ALLERGIES: EGGS. SOCIAL HISTORY: Denies smoking. Denies any history of alcohol abuse. Denies any history of substance abuse. Lives with . Goes to daycare. PREVIOUS CARDIAC WORKUP: As follows; the patient had a MUGA scan that showed the ejection fraction of 60%, dated 05/25/2015. The patient had echocardiography on 03/14/2016 that showed ejection fraction of 25%, mild to moderately dilated systolic function , mild tricuspid regurgitation, and RV systolic pressure of 33 mmHg, dated 03/14/2016. Then, the patient had a followup MUGA scan again on 03/19/2016 that showed ejection fraction 65%, normal gated wall motion. REVIEW OF SYSTEMS: As per HPI. PHYSICAL EXAMINATION: As follows; VITAL SIGNS: Temperature afebrile, heart rate 71, and blood pressure 115/56. Height of the patient is 4 feet 9 inches and weight of the patient is 85 pounds. HEENT: PERRLA. Extraocular muscles intact. NECK: Supple. No carotid bruits or thyromegaly. CHEST: Clear to auscultation. HEART: S1 and S2 regular. ABDOMEN: Soft. EXTREMITIES: Clubbing and cyanosis negative. LABORATORY DATA: Blood workup as follows; WBC 7.6, hemoglobin 11.9, hematocrit 38.1, and platelet count 112. Chemistry shows sodium 142, potassium 5.2, chloride 107, carbon dioxide 32, anion gap of 9, BUN 13, creatinine 0.7. Troponin is 0.01. EKG shows AFib with rapid ventricular rate. IMPRESSION: Paroxysmal atrial fibrillation and noncompliance with off any medication. The patient has a history of paroxysmal atrial fibrillation, admitted on 03/14/2016 with atrial fibrillation with rapid ventricular rate, history of chronic obstructive pulmonary disease, history of carbon dioxide narcosis, history of clubfoot, history of slow mental development, and history of cardiomyopathy. Echocardiogram shows decreased left ventricular function "twice." MUGA scan shows preserved left ventricular function. RECOMMENDATIONS: The patient was started on IV Cardizem, but later on the patient's heart rate decreased to 60s. We will put p.o. amiodarone, p.o. Cardizem, and monitor closely. Start low dose of Eliquis. We will recommend further depending on hospital course. Get lipid profile, TSH, hemoglobin A1c. So far, no evidence of TN. I discussed with the patient and the patient's daughter. We will cutdown the fluid to 50 mL an hour. We will repeat the EKG in the morning. We will follow with you. Thank you Dr. Her for providing opportunity in taking care of the patient, Sravani Villatoro. Magdalena Briones MD
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
[2017-09-04] MEDS: Sodium Chloride 0.9% 1,000 ML IV SCH ×2 (05:48→07:50)
[2017-09-04 06:14] VITALS: RESP 69; TEMP 97.9; O2SAT 93
[2017-09-04 06:20] LABS: MEAN CORPUSCULAR HEMOGLOBIN 31.7 pg (25.0-35.0); RED CELL DISTRIBUTION WIDTH 13.8 % (11.5-14.5); WHITE BLOOD COUNT 10.4 10^3/ul (4.5-11.0)
[2017-09-04 06:38] LABS: BLOOD UREA NITROGEN 11 mg/dL (7-21); CALCIUM 9.4 mg/dL (8.4-10.5); CARBON DIOXIDE 30 mmol/L (21-33); CHLORIDE 109 mmol/L (98-107); GFR AFRICAN-AMERICAN > 60; GLUCOSE,RANDOM 92 mg/dL (70-110); POTASSIUM 4.4 mmol/L (3.6-5.0); SODIUM 145 mmol/L (132-148)
[2017-09-04 09:38] VITALS: BP 129/77
[2017-09-04] MEDS ORDERED: Iron Complex Polysacch 150mg Cap PO SCH (10:00)
[2017-09-04 11:40] VITALS: PULSE 101
--- NOTE | 2017-09-04 13:29 | PN ---
DATE: 09/04/2017 REASON FOR CONSULTATION AND FOLLOWUP: Chest pain, proximal atrial fibrillation. SUBJECTIVE: Not in apparent distress. No chest pain, no shortness of breath, wanted to go home. OBJECTIVE: GENERAL: Lying flat in bed, not in apparent distress. VITAL SIGNS: Temperature afebrile, heart rate 61, and blood pressure 113/75. HEENT: PERRLA. Extraocular muscles intact. NECK: Supple. No carotid bruit or thyromegaly. CHEST: Clear to auscultation. HEART: S1 and S2, regular. ABDOMEN: Soft. EXTREMITIES: Clubbing and cyanosis negative. LABORATORY DATA: Telemetry shows atrial flutter with a controlled 3:1 conduction. Blood workup as follows: WBC 10.5, hemoglobin 12.8, hematocrit 40.0, and platelet count 136. Chemistry shows sodium 145, potassium of 4.4, chloride 109, carbon dioxide 30, anion gap of 11, BUN 11, and creatinine 0.8. IMPRESSION: Paroxysmal atrial fibrillation, developmental delay. Last MUGA scan showed ejection fraction is preserved. Recommended to continue 200 mg of amiodarone daily, change Cardizem to CD 120 mg daily, continue Eliquis 2.5 because the patient has a body mass 18 and body weight 84. We will follow with you. Okay to be discharged from Cardiology point of view. Discussed with nurse practitioner taking care of the patient. Magdalena Briones MD
--- NOTE | 2017-09-04 17:34 | CARD ---
APPROVED REPORT EKG Measurement Heart [id number] [id number] <Conclusion> Atrial flutter with variable AV block Left ventricular hypertrophy with QRS widening and repolarization abnormality Abnormal ECG
[2017-09-05] MEDS ORDERED: diltiaZEM 120 mg/24 Hours CD Cap PO SCH (10:00)
--- NOTE | 2017-09-05 16:58 | DS ---
CHIEF COMPLAINT: Palpitation, chest pain, and dizziness. HISTORY OF PRESENT ILLNESS: Ms. Sravani Villatoro is a 57-year-old female with past medical history of diabetes mellitus, hypertension, and tachycardia, who actually came in my office complaining about all above symptoms. The patient has increasing forgetfulness also. According to the patient, her appetite is okay. We admitted the patient in the telemetry, seen by the data review specialist and neurologist, Dr. Antwan Tang. According to the patient, maybe she has history of MS, but according to Dr. Tang, her record shows she does not have MS. Dr. Briones/Dr. Lux adjusted the patient's medications and the patient's heart rate was regular and discharged the patient to home with medication. The patient is cleared by the data review specialist and neurologist for discharge. PAST MEDICAL HISTORY: Dextrocardia, atrial fibrillation, multiple sclerosis, impaired vision, cataract bilaterally, speech impediment, diabetes mellitus type 2, back pain, constipation, and hysterectomy. ALLERGIES: THE PATIENT IS ALLERGIC WITH EGG. HOME MEDICATIONS: She does not remember. FAMILY HISTORY: Father and mother noncontributory. HABITS: Never smoked. No drugs or ethanol. REVIEW OF SYSTEMS: The patient is seen and examined at the bedside, looking comfortable. No nausea, vomiting or diarrhea. No hematuria. No hematochezia. Palpitation is better. Actually, she was restless to go home, sent home with the permission of data review specialist. Not in distress. No chest pain. No shortness of breath. PHYSICAL EXAMINATION: VITAL SIGNS: Temperature 98.6, heart rate 61, blood pressure 113/75, and respiratory rate 18. HEENT: Head is normocephalic, atraumatic. Eyes; PERRLA. Extraocular movements are intact. Conjunctivae clear. Nose is patent. Mucous membranes are moist. NECK: Supple. No carotid bruits, JVD or thyromegaly. CHEST: Bilaterally symmetrical. HEART: S1 and S2 positive. LUNGS: Clear to auscultation. ABDOMEN: Soft. Bowel sounds positive. No organomegaly. EXTREMITIES: No edema. No cyanosis. NEUROLOGIC: The patient is awake and alert. Moving all 4 extremities. No focal deficits. MEDICATIONS: Cardizem, amiodarone, Eliquis, iron, Pepcid, normal saline, and B12. LABORATORY DATA: White blood cells 10.4, hemoglobin 12.8, hematocrit 40.0, and platelets 136. Sodium 145, potassium 4.4, BUN 11, creatinine 0.8,and glucose 89. ASSESSMENT AND PLAN: Ms. Sravani Villatoro is a 57-year-old lady with history of anemia, hyperchloremia, hyperglycemia, rule out urinary tract infection. Seen by Dr. Briones who is the data review specialist. Has paroxysmal atrial fibrillation, developmental delay. Last MUGA scan showed ejection fraction is preserved. Recommended to continue amiodarone. Change of Cardizem to CD 120. Continue Eliquis 2.5. The patient has body mass index of 18 and the data review specialist cleared the patient for discharge. I have discussion done with Bertha and she spoke to Dr. Briones. The patient is seen by data review specialist and neurologist, Dr. Antwan Tang. According to him, the patient has history of diabetes mellitus, hypertension, questionable neuromuscular disease, and back pain. According to neurologist, the patient has been seen in the past. Multiple sclerosis workup previously has been negative. Previous CT scan on 04/11/2016 did not show any demyelination. The patient cannot get MRI due to antonia in the left leg and the patient is not clear about the antonia that the patient can get MRI or not, if MRI compatible or not, but the patient was restless to go home. Discharged home with and Bertha, nurse practitioner wrote prescription and to follow up with neurologist, data review specialist, and primary care physician. Noy Her MD LOVELY
== END 2017-09-04 12:01 | disposition home or self-care (01) | DRG 138 ==
LOC: ED 13:33 → ERH 17:41 → 2RSO 20:44
PROVIDERS: ADMIT Internal Medicine; ATTEND Internal Medicine
DX: I48.0 Paroxysmal atrial fibrillation (principal); E86.0 Dehydration; E11.36 Type 2 diabetes mellitus with diabetic cataract; E87.5 Hyperkalemia; J44.9 Chronic obstructive pulmonary disease, unspecified; I07.1 Rheumatic tricuspid insufficiency; G70.9 Myoneural disorder, unspecified; H54.7 Unspecified visual loss; M54.9 Dorsalgia, unspecified; K59.00 Constipation, unspecified; R47.89 Other speech disturbances; I10 Essential (primary) hypertension; Q24.0 Dextrocardia; Z91.14 Patient's other noncompliance with medication regimen

== ENCOUNTER 2019-02-04 21:50 | Emergency (ER) | payer MEDICAID ==
[2019-02-04 21:51] VITALS: PULSE 86; BMI 19.6
[2019-02-04 22:11] VITALS: RESP 16; TEMP 97.8
--- NOTE | 2019-02-04 22:27 | ED PDOC ---
Arrival/HPI - General Chief Complaint: Abdominal Pain Historian: Patient - History of Present Illness Narrative History of Present Illness (Text): 02/05/19 00:07 Patient is a 58 year old female with past medical history of dextrocardia and hypertension presenting with chief complaint of left sided abdominal pain which has been ongoing for the past week. Pain is intermittent and described as a cramping sensation. Admits to one episode of diarrhea. Denies fevers, chills, nausea, vomiting, chest pain, shortness of breath, dysuria. Time/Duration: < week Symptom Onset: Sudden Symptom Course: Intermittent Quality: Cramping Past Medical History - Provider Review Nursing Documentation Reviewed: Yes Primary Care Provider: Noy Her - Infectious Disease Hx of Infectious Diseases: None - Reproductive Menopause: Yes - Cardiac Hx Cardiac Disorders: Yes (dextrocardia) Hx Atrial Fibrillation: Yes Hx Hypertension: No - Pulmonary Hx Respiratory Disorders: No - Neurological Hx Neurological Disorder: Yes (multiple sclerosis) - HEENT Hx HEENT Disorder: Yes (impaired vision) Hx Cataracts: Yes (b/l sx) Hx Glaucoma: Yes (r eye needs sx, redness noted) Other/Comment: speech impediment - Renal Hx Renal Disorder: No - Endocrine/Metabolic Hx Endocrine Disorders: Yes Hx Diabetes Mellitus Type 2: Yes - Hematological/Oncological Hx Cirrhosis: No - Integumentary Hx Dermatological Disorder: No - Musculoskeletal/Rheumatological Hx Musculoskeletal Disorders: Yes Hx Back Pain: Yes Hx Falls: No Other/Comment: waks with cane - Gastrointestinal Hx Gastrointestinal Disorders: Yes (constipation at times) - Genitourinary/Gynecological Hx Genitourinary Disorders: No - Psychiatric Hx Post Traumatic Stress Disorder: No Hx Psychosis: Yes Hx Substance Use: No - Surgical History Hx Hysterectomy: Yes Hx Orthopedic Surgery: Yes - Anesthesia Hx Anesthesia: Yes Hx Anesthesia Reactions: No Hx Malignant Hyperthermia: No Family/Social History - Physician Review Nursing Documentation Reviewed: Yes Family/Social History: No Known Family HX Smoking Status: Never Smoked Hx Alcohol Use: No Hx Substance Use: No Allergies/Home Meds Allergies/Adverse Reactions: Allergies EGG Allergy (Mild, Verified 02/04/19 22:06) NAUSEA morphine Allergy (Verified 02/04/19 22:06) RASH Review of Systems - Physician Review All systems were reviewed & negative as marked: Yes - Review of Systems Respiratory: Normal Cardiovascular: Normal Gastrointestinal: Abdominal Pain Genitourinary Female: Normal Physical Exam Vital Signs Reviewed: Yes Vital Signs Temp Pulse Resp BP Pulse Ox 02/04/19 22:04 97.8 F 91 H 16 126/67 96 Temperature: Afebrile Blood Pressure: Normal Pulse: Regular Respiratory Rate: Normal Appearance: Positive for: Well-Appearing, Comfortable Pain Distress: None Mental Status: Positive for: Alert and Oriented X 3 - Systems Exam Head: Present: Atraumatic, Normocephalic Pupils: Present: PERRL Extroacular Muscles: Present: EOMI Conjunctiva: Present: Normal Mouth: Present: Moist Mucous Membranes Respiratory/Chest: Present: Clear to Auscultation, Good Air Exchange. No: Respiratory Distress, Accessory Muscle Use Cardiovascular: Present: Regular Rate and Rhythm, Normal S1, S2. No: Murmurs Abdomen: No: Tenderness, Distention, Peritoneal Signs Lower Extremity: Present: Normal Inspection. No: Edema Neurological: Present: GCS=15, CN II-XII Intact, Speech Normal Skin: Present: Warm, Dry, Normal Color. No: Rashes Psychiatric: Present: Alert, Oriented x 3 Medical Decision Making ED Course and Treatment: 02/05/19 00:29 Impression: 58 year old female with abdominal pain Plan: - CBC, CMP - Urinalysis - Urine test - Reassess and disposition Prior Visits: Notes and results from previous visits were reviewed. Progress Notes: 02/05/2019 00:32 Labs and imaging reviewed. Patient hemodynamically stable, reports no abdominal pain. Patient optimized for discharge and followup with primary medical doctor. Patient in agreement with plan of management. - Lab Interpretations I have reviewed the lab results: Yes Disposition/Present on Arrival - Present on Arrival Any Indicators Present on Arrival: No History of DVT/PE: No History of Uncontrolled Diabetes: No Urinary Catheter: No History of Decub. Ulcer: No History Surgical Site Infection Following: None - Disposition Have Diagnosis and Disposition been Completed?: Yes Diagnosis: Abdominal pain Disposition: HOME/ ROUTINE Disposition Time: 00:17 Patient Problems: Current Active Problems Problem Status Onset Abdominal pain Acute Condition: STABLE Discharge Instructions (ExitCare): Stomach Ache and Stomach Upset Additional Instructions: Follow up with your primary medical doctor within one week Take medications as prescribed Resume your other home medications as prescribed Return to ED if symptoms return or worsen Prescriptions: Ciprofloxacin [Cipro] 500 mg PO BID #14 tab Referrals: Noy Her MD [Primary Care Provider] - Follow up with primary Forms: [employer] (Yakut)
[2019-02-04 22:52] LABS: BASO # 0.02 K/mm3 (0.0-2.0); BASO % 0.2 % (0.0-3.0); EOS # 0.1 (0.0-0.7); EOS % 0.9 % (1.5-5.0); HEMOGLOBIN 13.4 g/dL (12.0-16.0); LYMPH # 3.3 (1.2-3.4); LYMPH % 35.2 % (22.0-35.0); MEAN CELL VOLUME 95.9 fl (80.0-105.0); MEAN CORPUSCULAR HEMOGLOBIN 30.5 pg (25.0-35.0); MEAN CORPUSCULAR HGB CONC 31.8 g/dl (31.0-37.0); MEAN PLATELET VOLUME 9.7 fl (7.0-11.0); MONO # 0.6 (0.1-0.6); MONO % 6.5 % (1.0-6.0); RBC 4.39 10^6/uL (3.5-6.1); RED CELL DISTRIBUTION WIDTH 13.5 % (11.5-14.5); WHITE BLOOD COUNT 9.3 10^3/uL (4.5-11.0)
[2019-02-04 23:03] LABS: ALB/GLOB RATIO 1.5 (1.1-1.8)
[2019-02-04 23:04] LABS: ALBUMIN 4.1 g/dL (3.0-4.8); ALT/SGPT 35 U/L (7-56); AST/SGOT 22 U/L (14-36); BLOOD UREA NITROGEN 18 mg/dL (7-21); GFR NON-AFRICAN AMERICAN > 60
[2019-02-04 23:46] LABS: PH,URINE 6.5 (4.7-8.0); URINE BILIRUBIN NEGATIVE (NEGATIVE); URINE BLOOD NEGATIVE (NEGATIVE); URINE GLUCOSE (UA) NEGATIVE (NEGATIVE); URINE LEUKOCYTE ESTERASE SMALL Leu/uL (NEGATIVE); URINE PROTEIN TRACE mg/dL (<30 mg/dL); URINE UROBILINOGEN 0.2 E.U./dL (<1 E.U./dL)
[2019-02-04 23:54] LABS: URINE APPEARANCE SL CLOUDY (CLEAR); URINE COLOR YELLOW (YELLOW)
[2019-02-05] VITALS: BP 110/64; PULSE 84; O2SAT 95
[2019-02-05 00:11] LABS: URINE BACTERIA MANY /hpf; URINE EPITHELIAL CELLS 0 - 2 /hpf (0-5); URINE RBC 0 - 2 /hpf (0-2)
== END 2019-02-05 00:29 | disposition home or self-care (01) ==
LOC: ED 21:50
DX: R10.9 Unspecified abdominal pain (principal); E11.9 Type 2 diabetes mellitus without complications; I10 Essential (primary) hypertension; I48.91 Unspecified atrial fibrillation; G35 Multiple sclerosis